=== PATIENT | male | born 1930 | race Caucasian/White ===

== ENCOUNTER 2021-04-19 22:36 | Inpatient (IN) | payer MEDICARE, OTHER ==
[~2021-04-19] VITALS: Ht 172.7 cm; Wt 68.0 kg
--- NOTE | 2021-04-19 22:50 | NUR ---
Patient BIB family via wheelchair, patient c/c: R leg swelling. Family states that patient was from an airline flight for 17 hours and the right leg swelling occurred during this time patient. Patient states that his right leg does not hurt, and only hurts upon bearing weight upon it.
--- NOTE | 2021-04-19 22:51 | NUR ---
MD Brice Patel in room to do MSE.
--- NOTE | 2021-04-19 23:01 | NUR ---
U/S tech Florentino in room to do U/S of patient's right leg.
[2021-04-19] MEDS ORDERED: ASPIRIN 81 MG TAB.CHEW PO ONE (23:15)
--- NOTE | 2021-04-19 23:17 | NUR ---
shampoo technician Lacey in room to draw blood from patient.
[2021-04-19] MEDS ORDERED: ASPIRIN 81 MG TAB.CHEW ONE (23:23)
--- NOTE | 2021-04-19 23:24 | NUR ---
business technology architect in room to take x-ray of patient.
[2021-04-19 23:31] LABS: HEMATOCRIT 36.2 % (36.7-47.1); MEAN CORPUSCULAR HEMOGLOBIN 32.1 uug (23.8-33.4); PLATELET COUNT (AUTO) 230 K/uL (152-348)
[2021-04-19 23:34] LABS: CREATININE 1.1 mg/dL (0.6-1.3); POTASSIUM 3.9 mmol/L (3.5-5.1)
[2021-04-19 23:41] LABS: *OCCULT BLOOD STOOL NEGATIVE (NEGATIVE)
[2021-04-19 23:47] LABS: BILIRUBIN,DIRECT 0.1 mg/dL (0.0-0.2); BILIRUBIN,TOTAL 0.8 mg/dL (0.2-1.0)
--- NOTE | 2021-04-20 00:01 | NUR ---
Patient is resting comfortably in bed with eyes closed, with son at bed side. No acute distress noted.
[2021-04-20] MEDS ORDERED: [UNRECOGNIZED DRUG - CODE] PO (00:17)
--- NOTE | 2021-04-20 00:26 | NUR ---
Epic panel call placed, pending call back from SIMA Burns.
--- NOTE | 2021-04-20 00:33 | NUR ---
SIMA Burns connected to MD Brice Patel.
--- NOTE | 2021-04-20 00:35 | NUR ---
Patient assigned to room 321 med-surg.
[2021-04-20] MEDS ORDERED: Z GUARD REMEDY PASTE 57 GM TUBE TOP PRN (00:45)
[2021-04-20] MEDS ORDERED: ENOXAPARIN SODIUM 40 MG/0.4 ML DISP.SYRIN SQ SCH (00:45)
[2021-04-20] MEDS ORDERED: MAGNESIUM HYDROXIDE 30 ML LIQUID UDC PO PRN (00:45)
[2021-04-20] MEDS ORDERED: HYDROCODONE/APAP 5-325MG TABLET PO PRN (00:45)
[2021-04-20] MEDS ORDERED: ACETAMINOPHEN 325 MG TABLET PO PRN (00:45)
[2021-04-20] MEDS ORDERED: ONDANSETRON 4 MG/2 ML VIAL IV PRN (00:45)
--- NOTE | 2021-04-20 01:09 | NUR ---
Patient is resting comfortably in bed with eyes closed, no acute distress noted.
--- NOTE | 2021-04-20 01:30 | NUR ---
Report given to LULY Ellison.
--- NOTE | 2021-04-20 02:15 | NUR ---
Pt. admitted to 321 med-surg, under care of TRANSFER MAN Robbie Burns. Belongs List completed
[2021-04-20 02:45] VITALS: BP 110/66
--- NOTE | 2021-04-20 02:45 | NUR ---
ADMITTED THIS 89 Y.O. MALE FROM ER VIA [facility],DONNA COMPLAINTS OF INABILITY TO [facility],AND INTRACTABLE RIGHT LEG PAIN.HE JUST ARRIVED FROM [facility],HAS HASLONG HISTORY OF LEG SWELLINGAND SHORTNESS OF BREATH.HE IS FULL CODE.TESTED NEGATIVE FOR COVID ,MRSA SWAB DONE IN ER.IV SITE OF G 20 ON RIGHT FOREARM INTACT AND PATENT. NO SKIN ISSUE NOTED. INCONTINENT OF URINE, DIAPER CHANGED AND KEPT CLEAN AND DRY. FARSI SPEAKING ONLY, UNABLE TO GIVE INFO REGARDING HEALTH CONDITIONS. CXR SHOWED MILD BASILAR INFILTRATES.ADMISSIN CARE DONE, PT ONLY WANTS TO SLEEP AND REST.WILLCONTINUE ASSESSMENT LATER.CALL LITE W/I REACH.NO ACUTE DISTRESS NOTED. SLEPT AT LONG INTERVALS.
[2021-04-20 04:00] VITALS: BP 106/67
--- NOTE | 2021-04-20 05:00 | NUR ---
RT LEG ELEVATED ON PILLOW, NO COMPLAINTS PRESENTED.
[2021-04-20] MEDS ORDERED: PANTOPRAZOLE SODIUM 40 MG TABLET.DR PO SCH (07:00)
[2021-04-20] MEDS: CARBIDOPA/LEVODOPA 10-100MG TABLET PO SCH ×3 (10:13→17:00)
[2021-04-20 11:50] VITALS: BP 141/67
[2021-04-20 16:00] VITALS: BP 123/55
--- NOTE | 2021-04-20 19:05 | NUR ---
dc orders received noted and carried out dc heplock per md orders dc instruction and education given to the pt and his nephew .pt left the facility via private car in stable condition
== END 2021-04-20 19:07 | disposition home health service (06) | DRG 57 ==
LOC: ER 22:38 → MEDSURG3 04-20 00:36
PROVIDERS: ADMIT Nurse Practitioner Acute Care; ATTEND Nurse Practitioner Acute Care
DX: G20 Parkinson's disease (principal); R53.1 Weakness; R60.0 Localized edema; R26.2 Difficulty in walking, not elsewhere classified; Z20.822 Contact with and (suspected) exposure to COVID-19
CPT/HCPCS: 36415; 70030-TC; 71045; 85025; 93005; A4663; G0378; J1650